=== PATIENT | female | born 1995 | race Caucasian/White ===

== ENCOUNTER 2022-03-16 08:40 | Emergency (ER) | payer OTHER ==
[~2022-03-16] VITALS: Ht 170.2 cm; Wt 57.2 kg
[~2022-03-16 08:40] MED LIST: MACROBID 100 M100 MG PO; PYRIDIUM200 MG PO
== END 2022-03-16 13:49 | disposition home or self-care (01) ==
LOC: ER 08:40
DX: K29.00 Acute gastritis without bleeding (principal)